=== PATIENT | male | born 1975 | race Caucasian/White ===

== ENCOUNTER → 2020-06-07 19:03 | Outpatient (ROUT) | payer OTHER, SELFPAY ==
[2020-06-07 19:22] LABS: BUN Creatinine Ratio 14.1 (6-22); Blood Urea Nitrogen 9 mg/dL (9-20); Calcium 9.5 mg/dL (8.4-10.2); Carbon Dioxide 30 mmol/L (22-32); Chloride 97 mmol/L (98-107); Cholesterol 220 mg/dL (140-199); Estimated Glomerular Filt Rate > 60.0 mL/min (>60); Glucose 78 mg/dL (70-100); HDL Cholesterol 81 mg/dL (40-60); HEMOLYSIS < 15 (0-50); LDL Cholesterol Calculated 128 mg/dL (<100); Potassium 3.8 mmol/L (3.4-5.1); Sodium 136 mmol/L (137-145); Triglycerides 55 mg/dL (35-150)
[2020-06-09 06:36] LABS: PSA, Total 0.3 ng/mL (0.0-4.0)
== END ==
PROVIDERS: PCP Physician Assistant; Visit Provider Internal Medicine
DX: Z00.00 Encounter for general adult medical examination without abnormal findings (principal)
CPT/HCPCS: 80048; 80061; 84153; 84154

== ENCOUNTER → 2023-01-11 12:26 | Outpatient (CLI) | payer OTHER, SELFPAY ==
--- NOTE | 2023-01-11 12:32 | DI.MRI.S_ITS ---
PROCEDURE: MR HAND RT WO/W CON INDICATIONS: evaluate right thumb mass TECHNIQUE: Noncontrast coronal T1 spin echo and STIR, sagittal T1 spin echo with fat saturation and STIR, axial T1 spin echo and T2 fast spin echo with fat saturation. After the administration of contrast, axial/sagittal/coronal T1 spin echo with fat saturation through the right hand. COMPARISON: None. FINDINGS: Image quality: Excellent. Bones: The visualized bone marrow demonstrates normal signal on all sequences. The overlying cortex appears intact. No abnormal periosteal reaction. No abnormal intraosseous enhancement. Soft tissues: Slightly lobulated and mildly T2 hyperintense and T1 hypointense structure involving deep soft tissue over volar aspect of 1st proximal phalanx is seen and measures up to 1.5 x 2.5 x 2.8 cm in size and show mild heterogeneous contrast enhancement. The mass is superficial to the flexor tendons of the thumb without definite tendon involvement. The scanned muscles demonstrate normal overall bulk and internal signal. Subcutaneous tissues appear normal as well. No other abnormal soft tissue enhancement. IMPRESSION: 1. 1.5 x 2.5 x 2.8 cm enhancing solid mass involving deep soft tissue over volar aspect of 1st proximal phalangeal shaft and is superficial to flexor tendons of the thumb as described above. No definite underlying tendon or muscle involvement is seen. Consider excision of the mass for more definitive diagnosis. 2. No marrow signal abnormality. No abnormal intraosseous enhancement. Dictated by: Maco Stokes M.D. on 01/12/2023 at 10:43 Approved by: Maco Stokes M.D. on 01/12/2023 at 10:49
== END ==
PROVIDERS: Referring Provider Orthopaedic Surgery; Visit Provider Orthopaedic Surgery
DX: R22.31 Localized swelling, mass and lump, right upper limb (principal)
CPT/HCPCS: 73220; A9579

== ENCOUNTER 2024-03-01 23:28 | Emergency (ER) | payer OTHER, SELFPAY ==
[2024-03-01 23:40] VITALS: BP 150/95; PULSE 79; RESP 20; TEMP 37.1; O2SAT 99; BMI 19.9
[2024-03-02 00:30] VITALS: PULSE 65; O2SAT 100
[2024-03-02 00:31] VITALS: BP 124/87; PULSE 67; O2SAT 98
[2024-03-02 01:00] VITALS: BP 129/81; PULSE 75; O2SAT 97
[2024-03-02 01:30] VITALS: BP 133/96; PULSE 74; O2SAT 97
--- NOTE | 2024-03-02 01:32 | ED.SKABFB ---
HPI - Skin/Abscess/Foreign Bdy General Chief complaint: Skin/Abscess/Foreign Body Stated complaint: swallowed a pill stuck in airway Time Seen by Provider: 03/02/24 00:47 Source: patient Mode of arrival: Ambulatory History of Present Illness HPI narrative: Patient 49-year-old male to female transitioning person presents today with pill stuck in throat. She reports that she took all of her vitamins evening but there is 1 that she feels like it is stuck. She says that she was having some trouble breathing but now feels like it has a little bit better. She had multiple glasses of water at home try any of the pill to move and to go down but it would not go down. It feels like it is right in the back of her throat. Took about 9 supplements and vitamins this is 1 that got stuck. Patient History Social History Smoking Status: Never smoker Smoking Status: Never smoker alcohol intake frequency: a few times a week Substance Use Type: does not use Exam Initial Vital Signs Initial Vital Signs: Vital Signs Temperature 98.7 F 03/01/24 23:40 Pulse Rate 79 03/01/24 23:40 Respiratory Rate 20 03/01/24 23:40 Blood Pressure 150/95 H 03/01/24 23:40 Pulse Oximetry 99 03/01/24 23:40 Oxygen Delivery Method Room Air 03/01/24 23:40 GENERAL: Alert well-appearing 49 year and in no acute distress. HEENT: Head atraumatic,EOMI, pupils reactive, face symmetric, moist mucous membranes PHARYNX: No foreign body no airway compromise CARDIOVASCULAR: Regular rate and rhythm without murmurs, rubs or gallops. RESPIRATORY: Breath sounds equal bilaterally, no wheezes rales or rhonchi. ABDOMEN: Soft, nontender. Normoactive bowel sounds all 4 quadrants. No guarding or rebound. EXTREMITIES: Normal range of motion, no clubbing or edema. Neurovascularly intact NEUROLOGICAL: Alert and oriented x4. SKIN: Warm, dry, no laceration, no petechiae, no rashes or lesions. Course Vital Signs Vital signs: Vital Signs - 8 hr 03/01/24 23:40 03/02/24 00:30 03/02/24 00:31 Temperature 98.7 F Pulse Rate 79 65 Respiratory Rate 20 Blood Pressure 150/95 H 124/87 Pulse Oximetry 99 100 Oxygen Delivery Method Room Air 03/02/24 00:31 03/02/24 01:00 03/02/24 01:00 Temperature Pulse Rate 67 75 Respiratory Rate Blood Pressure 129/81 Pulse Oximetry 98 97 Oxygen Delivery Method 03/02/24 01:30 03/02/24 01:30 03/02/24 02:00 Temperature Pulse Rate 74 Respiratory Rate Blood Pressure 133/96 H 129/91 H Pulse Oximetry 97 Oxygen Delivery Method 03/02/24 02:00 Temperature Pulse Rate 75 Respiratory Rate Blood Pressure Pulse Oximetry 97 Oxygen Delivery Method MDM - Skin/Abscess/Foreign Bdy MDM Narrative Medical decision making narrative: Patient presents with possible aspiration of pill versus pill stuck in the esophagus. At this time after waiting in the emergency department for couple of hours looks well. No evidence of difficulty breathing no conversational dyspnea managing her own secretions had a cup of water here in the emergency department. At this time recommend supportive care. Discussion about aspiration pneumonia and return precautions. Discharge Plan Departure Patient Disposition: Home Clinical Impression: Impacted esophageal foreign body Instructions: Aspiration Pneumonia Activity Restrictions/Additional Instructions: *You have been diagnosed with pill impactions *What to do: At this time the pill should dissolve it may take 12:48 p.m.. Monitor for signs of aspiration pneumonia which include fever productive cough shortness of breath *Continue to take medications as directed *Follow up with your primary care provider in 2-3 days or call [phone] *Return to ER if you should have any new, worsening or concerning symptoms Stand Alone Forms: Patient Portal/API
[2024-03-02 02:00] VITALS: BP 129/91; PULSE 75; O2SAT 97
== END 2024-03-02 02:05 | disposition home or self-care (01) ==
PROVIDERS: Emergency Provider Emergency Medicine
DX: T18.198A Other foreign object in esophagus causing other injury, initial encounter (principal)
CPT/HCPCS: 99281; 99282